=== PATIENT | female | born 1970 | race Caucasian/White ===

== ENCOUNTER → 2016-09-14 | Outpatient (CLI) | payer BC | LOC: M RAD 08:54 | PROVIDERS: ATTEND Nurse Practitioner | DX: Z12.31 Encounter for screening mammogram for malignant neoplasm of breast (principal) ==

== ENCOUNTER → 2016-12-20 | Outpatient (CLI) | payer BC ==
[~2016-12-20] MED LIST: CYCL10TA PO; FLOM5CAP PO; LEXA1TAB2 PO; MACR100C43 PO
--- NOTE | 2016-12-20 15:34 | REPMRS ---
Patient History The patient states she had a clinical breast exam in 12/06 Baseline Mammogram Patient is nulliparous. No known family history of cancer. Digital Woman Screen Mammo: December 20, 2016 - Exam #: [id number] Bilateral CC and MLO view(s) were taken. Technologist: Linette Sarabia, Technologist FINDINGS: The breast tissue is extremely dense which could obscure a lesion on mammography. There is a large amount of residual fibroglandular tissue which is fairly symmetric. There is no dominant mass, architectural distortion, or clustered microcalcification typical of malignancy. There are scattered, small, benign calcifications of doubtful clinical significance. Large coarse benign appearing calcifications are present. ASSESSMENT: BI-RADS/ACR category 2 mammogram. Benign finding(s). Recommendation Routine screening mammogram in 1 year (for women over age 40). This mammogram was interpreted with the aid of an FDA-approved computer-aided dectection system. A. Negative x-ray reports should not delay biopsy if a dominant or clinically suspicious mass is present. B. Four to eight percent of cancers are not identified by mammography. C. Adenosis and dense breast may obscure an underlying neoplasm. Electronically Signed By: Efren Fragoso MD 12/20/16 8821
== END ==
LOC: M WHC 09:38
PROVIDERS: ATTEND Advanced Practice Midwife
DX: Z12.31 Encounter for screening mammogram for malignant neoplasm of breast (principal)

== ENCOUNTER 2017-01-31 13:28 | Emergency (ER) | payer BC ==
[~2017-01-31] VITALS: Ht 165.1 cm; Wt 55.5 kg
[2017-01-31] MEDS ORDERED: LEXA1TAB2 PO (13:41)
[2017-01-31] MEDS ORDERED: KETOROLAC 30 MG/ML VIAL (J1885) IV ONE (14:15)
[2017-01-31 14:51] LABS: CONTROL LINE UCG INT CTR LINE PRESENT
[2017-01-31] MEDS ORDERED: MORPHINE 2 MG/ML 1ML SYRINGE IV ONE (15:00)
[2017-01-31] MEDS ORDERED: CYCL10TA PO (16:16)
[2017-01-31] MEDS ORDERED: FLOM5CAP PO (16:16)
[2017-01-31] MEDS ORDERED: MACR100C43 PO (16:24)
[2017-01-31 16:33] VITALS: BP 99/68
--- NOTE | 2017-01-31 16:45 | REP ---
CT ABDOMEN AND PELVIS WITHOUT CONTRAST: 01/31/2017. Comparison: 10/21/2006. Clinical history: Flank pain, history of nephrolithiasis. Findings: The noncontrast renal stone protocol was utilized. CT abdomen: Lung bases remain clear. Heart is not enlarged as no pericardial thickening or effusion and no hiatal hernia. Liver, spleen, gallbladder, pancreas and adrenal glands were unremarkable. The aorta is without aneurysm or calcification. No periaortic or other retroperitoneal pathologic sized lymphadenopathy. A levorotatory curvature of the lumbar spine is again seen. There are a couple of punctate calcifications in renal pyramids on the right. No definite stones in the collecting system. No ureteral dilatation or stone on the right. The left kidney shows some hydronephrosis. Extrarenal pelvis and proximal hydroureter down to about the L4-5 level. No stone is visible within that dilated ureter or extrarenal pelvis. There are numerous calcifications in that kidney some calyces or diverticula on these pyramids. The largest is in the lower pole on the right about 10 mm in vertical diameter. I note that the CT 10 years ago had trace stones in the dilated ureter down to about the L4-5 level which is precisely where the stricture is today. Small bowel loops and colon are grossly intact. Lung window review shows no evidence of perforation or free air. Bone windows show disc spaces intact with scoliosis as described in the lumbar spine and no compression deformity or posterior element acute finding. Visualized ribs intact. CT pelvis: Bony hips were unremarkable. The pelvis shows no fracture or focal lesion and sacrum and SI joints intact. Symphysis pubis and pubic rami were unremarkable. The pelvic ureters are not dilated on either side. There is no ureteral stone in the pelvis the bladder is without wall thickening mass or stone. Uterus anteverted, not enlarged. There is a 2.5 cm cyst in the left ovary without pelvic free fluid. Right ovary smaller without cyst. No solid adnexal mass or pelvic adenopathy. No inflammatory changes about the cecum. I see no ventral or inguinal hernia nor pathologic sized inguinal adenopathy. Impression: 1. Extrarenal pelvis and dilated ureter on the left to the level of L4-5. A ureteral stricture is present at that level. This is the same level where there are three stones in the ureter on the CT scan 10 years ago. No stones in the ureter or dilated collecting system today, although there are multiple stones up to 10 mm in pyramids and calyces on that left side. Some may be in a calyceal diverticulum but none of them are free in the collecting system. There are only a few pyramidal stones on the right side. No right sided hydronephrosis or hydroureter. 2. A 2.5 cm presumed ovarian cyst in the left ovary. 3. Levorotatory scoliotic curvature lumbar spine. No other finding. Signed by Efren Fragoso MD 01/31/2017 05:24 P
== END 2017-01-31 16:36 | disposition home or self-care (01) ==
LOC: M ED 13:28
DX: N20.0 Calculus of kidney (principal); M41.9 Scoliosis, unspecified; Z87.448 Personal history of other diseases of urinary system; Z88.1 Allergy status to other antibiotic agents
CPT/HCPCS: 74176; 84703; 96374; 96375; 99283; J1885

== ENCOUNTER → 2017-06-17 | Outpatient (REF) | payer BC ==
[2017-06-17 13:59] LABS: HEMATOCRIT 38.3 % (36.0-47.0); MEAN CORPUSCULAR HEMOGLOBIN 30.4 pg (27.0-33.0); MEAN CORPUSCULAR HGB CONC 33.9 g/dl (32.0-36.5); MEAN CORPUSCULAR VOLUME 89.7 fl (80.0-96.0); PLATELET COUNT, AUTOMATED 315 10^3/uL (150-450); RED BLOOD COUNT 4.27 10^6/uL (4.00-5.40); RED CELL DISTRIBUTION WIDTH 12.7 % (11.5-14.5); WHITE BLOOD COUNT 2.5 10^3/uL (4.0-10.0)
[2017-06-17 14:26] LABS: ALBUMIN 3.5 GM/DL (3.2-5.2); ALBUMIN/GLOBULIN RATIO 1.21 (1.00-1.93); ALKALINE PHOSPHATASE 69 U/L (45-117); ALT/SGPT 57 U/L (12-78); ANION GAP 6 MEQ/L (8-16); AST/SGOT 25 U/L (7-37); BILIRUBIN,TOTAL 0.3 MG/DL (0.2-1.0); BLOOD UREA NITROGEN 9 MG/DL (7-18); CALCIUM LEVEL 9.2 MG/DL (8.5-10.1); CARBON DIOXIDE LEVEL 27 MEQ/L (21-32); CHLORIDE LEVEL 112 MEQ/L (98-107); CHOLESTEROL LEVEL 189 MG/DL (<200); CHOLESTEROL RISK RATIO 3.315 (<5); CREATININE FOR GFR 0.32 MG/DL (0.55-1.02); FREE T4 2.19 NG/DL (0.76-1.46); GLOMERULAR FILTRATION RATE > 60.0 (>58); GLUCOSE, FASTING 97 MG/DL (70-100); HDL CHOLESTEROL 57 MG/DL (>40); LDL CHOLESTEROL 122.8 MG/DL (<100); NON-HDL-C 132 MG/DL; POTASSIUM SERUM 4.6 MEQ/L (3.5-5.1); SODIUM LEVEL 145 MEQ/L (136-145); THYROID STIMULATING HORMONE < 0.005 uIU/ML (0.358-3.740); TOTAL PROTEIN 6.4 GM/DL (6.4-8.2); TRIGLYCERIDES LEVEL 46 MG/DL (<150)
[2017-06-21 00:08] LABS: VITAMIN D 1,25 DIHYDROXY 27.5 pg/mL (19.9-79.3)
== END ==
LOC: M LAB REF 13:05
DX: Z01.419 Encounter for gynecological examination (general) (routine) without abnormal findings (principal)
CPT/HCPCS: 84443

== ENCOUNTER → 2017-06-23 | Outpatient (REF) | payer BC ==
[2017-06-24 12:58] LABS: THYROID PEROXIDASE ANTIBODY 89.7 U/ML (<60.0)
== END ==
LOC: M LAB REF 16:38
DX: R94.6 Abnormal results of thyroid function studies (principal)
CPT/HCPCS: 86376

== ENCOUNTER → 2017-07-06 | Outpatient (CLI) | payer BC | LOC: M RAD 10:32 | DX: E05.90 Thyrotoxicosis, unspecified without thyrotoxic crisis or storm (principal) ==

== ENCOUNTER → 2017-07-28 | Outpatient (CLI) | payer BC | LOC: M RAD 10:30 | DX: E05.80 Other thyrotoxicosis without thyrotoxic crisis or storm (principal) ==

== ENCOUNTER → 2018-10-25 | Outpatient (REF) | payer BC ==
[~2018-10-25] MED LIST changes: +FLOM0.4C39 PO; -FLOM5CAP PO
[2018-10-27 15:46] LABS: HPV HYBRID CAPTURE II Negative (Negative)
== END ==
LOC: M LAB REF 13:18
PROVIDERS: ATTEND Advanced Practice Midwife
DX: Z12.4 Encounter for screening for malignant neoplasm of cervix (principal)
CPT/HCPCS: 87624; G0123

== ENCOUNTER → 2018-10-30 | Outpatient (CLI) | payer BC ==
--- NOTE | 2018-10-30 13:59 | REPMRS ---
Patient History The patient states she had a clinical breast exam in October 2018.No known family history of cancer. Digital Mammo Screening Bilat: October 30, 2018 - Exam #: [id number] Bilateral CC and MLO view(s) were taken. Technologist: Madelaine Jovel, Technologist Prior study comparison: December 20, 2016, digital woman screen mammo, performed at [facility]. FINDINGS: The breast tissue is extremely dense which could obscure a lesion on mammography. There is an extremely dense symmetrical pattern of residual fibroglandular tissue. There has been no change in the appearance of the mammogram from the previous studies. There is no interval development of dominant mass, archetectural distortion, or microcalcific cluster suggestive of malignancy. 3-D tomosynthesis shows no additional findings. Assessment: BI-RADS/ACR category 1 mammogram. Negative Mammogram. Recommendation Routine screening mammogram of both breasts in 1 year (for women over age 40). This patient's Lifetime Breast Cancer RIsk is estimated at 12.8 %. This mammogram was interpreted with the aid of an FDA-approved computer-aided dectection system. Electronically Signed By: Prashant Kim MD 10/30/18 8948
== END ==
LOC: M RAD 12:35
PROVIDERS: ATTEND Advanced Practice Midwife
DX: Z12.31 Encounter for screening mammogram for malignant neoplasm of breast (principal)

== ENCOUNTER → 2019-12-26 | Outpatient (CLI) | payer BC ==
[~2019-12-26] MED LIST changes: +CYCL-707 PO; -CYCL10TA PO
--- NOTE | 2020-01-15 10:07 | REPMRS ---
Patient History The patient states she had a clinical breast exam in November 2019.Patient is nulliparous. No known family history of cancer. Digital Woman Screen Mammo: December 26, 2019 - Exam #: [id number] Bilateral CC and MLO view(s) were taken. Technologist: Lou Geiger, Technologist Prior study comparison: October 30, 2018, bilateral digital mammo screening bilat performed at [facility]. December 20, 2016, digital woman screen mammo, performed at [facility]. FINDINGS: The breast tissue is extremely dense which could obscure a lesion on mammography. There is an extremely dense symmetrical pattern of residual fibroglandular tissue. There has been no change in the appearance of the mammogram from the previous studies. There is no interval development of dominant mass, archetectural distortion, or grouped microcalcifications suggestive of malignancy. 3-D tomosynthesis shows no additional findings. Report was delayed due to a protracted computer network disruption experienced by this facility. Assessment: BI-RADS/ACR category 1 mammogram. Negative Mammogram. Recommendation Routine screening mammogram of both breasts in 1 year (for women over age 40). This patient's Lifetime Breast Cancer RIsk is estimated at 12.7 %. This mammogram was interpreted with the aid of an FDA-approved computer-aided dectection system. Electronically Signed By: Prashant Kim MD 01/15/20 1007
== END ==
LOC: M WHC 17:28
PROVIDERS: ATTEND Advanced Practice Midwife
DX: Z12.31 Encounter for screening mammogram for malignant neoplasm of breast (principal)

== ENCOUNTER → 2020-11-28 | Outpatient (REF) | payer BC | LOC: M SFHCWAGY 12:47 | PROVIDERS: ATTEND Advanced Practice Midwife | DX: Z12.4 Encounter for screening for malignant neoplasm of cervix (principal); R87.610 Atypical squamous cells of undetermined significance on cytologic smear of cervix (ASC-US) | CPT/HCPCS: 87624; G0123 ==

== ENCOUNTER → 2020-12-26 | Outpatient (CLI) | payer BC ==
--- NOTE | 2020-12-26 10:26 | REP ---
INDICATION: ENCTR SCREEN MAMMO FOR BREAST CANCER. COMPARISON: Multiple TECHNIQUE: Digital screening mammography was carried out bilaterally in the CC and MLO projections. Both 2D and 3D modalities were utilized. Today's exam is being compared to the prior exams. By history, the patient has no complaints of a palpable breast abnormality or other significant breast complaints. FINDINGS: The breasts are unchanged in size and shape. Once again, markedly dense heterogenous somewhat nodular fibroglandular elements are seen bilaterally to such a degree that the sensitivity of the mammogram in detecting cancer is decreased. In the upper aspect of the left breast near 12 o'clock there is a potential florentino density best seen on DBT imaging. In the right breast upper outer quadrant there is a potential florentino density also seen best on DBT imaging. Stable benign appearing calcifications are again seen bilaterally. Some of these are in groups but no in group is more suspicious than any other. There is no evidence of internal architectural distortion. There are no suspicious calcifications. There is no skin thickening or nipple retraction. The Volpara volumetric breast density pattern is D IMPRESSION: BIRADS/ACR category 0 mammogram. Potential florentino density 1 in each breast as described above and for which diagnostic digital DBT spot compression views are recommended in the CC and MLO projections. Additionally, diagnostic ultrasonography may be necessary. This patient's Tyrer-Cuzick lifetime breast cancer risk assessment score is 12.5%. This mammogram was interpreted with the aid of an FDA-approved computer-aided detection system. The patient states she had a clinical breast exam in November 2020 The patient letter being requested is M0. RECOMMENDATION: As above <Electronically signed by Jake Ayers > 12/26/20 1020
== END ==
LOC: M WHC 09:22
PROVIDERS: ATTEND Advanced Practice Midwife
DX: R92.2 Inconclusive mammogram (principal)

== ENCOUNTER → 2021-01-29 | Outpatient (CLI) | payer BC ==
--- NOTE | 2021-01-29 10:15 | REP ---
INDICATION: SOO DIAG MAMMO/SOO SERGEI DENSITIES. COMPARISON: Multiple TECHNIQUE: Diagnostic digital bilateral mammography was carried out in both 2D and 3D modalities with magnified spot compression views in the CC and MLO projections along with bilateral DBT spot compression views in the CC and MLO projections. Diagnostic ultrasonography of the upper outer quadrant of the right breast was also obtained. FINDINGS: Left breast: The area of interest seen on the prior screening examination of 12/26/2020 near the 12 o'clock position has compressed out to normal breast parenchyma. Stable benign appearing calcifications are identified. Right breast: The nodular density seen in the upper outer quadrant persists on the diagnostic views. Diagnostic ultrasonography of this region shows multiple smoothly marginated well-circumscribed anechoic structures varying in size from less than 5 mm up to 8 mm in greatest dimensions. These all exhibit posterior wall enhancement and increased through transmission. Shear wave elastography was performed on the showing very low kPa values. IMPRESSION: BIRADS/ACR category 2 benign findings. Multiple right breast cysts. There is no evidence of malignant alteration of either breast. The patient letter being requested is M1. RECOMMENDATION: Repeat screening mammography recommended 1 year (for women over 40). <Electronically signed by Jake Ayers > 01/29/21 1014
== END ==
LOC: M WHC 07:44
PROVIDERS: ATTEND Advanced Practice Midwife
DX: R92.2 Inconclusive mammogram (principal)
CPT/HCPCS: 76642; 77066; G0279

== ENCOUNTER → 2022-02-18 | Outpatient (CLI) | payer BC | LOC: M WHC 09:09 | PROVIDERS: ATTEND Advanced Practice Midwife | DX: Z12.31 Encounter for screening mammogram for malignant neoplasm of breast (principal) ==

== ENCOUNTER → 2023-03-02 | Outpatient (CLI) | payer BC | LOC: M WHC 15:03 | PROVIDERS: ATTEND Advanced Practice Midwife | DX: Z12.31 Encounter for screening mammogram for malignant neoplasm of breast (principal) ==

== ENCOUNTER → 2024-12-05 | Outpatient (CLI) | payer BC ==
[~2024-12-05] MED LIST changes: -FLOM0.4C39 PO; +TAMS-18 PO
[2024-12-05 13:52] LABS: PROGESTERONE 0.25 NG/ML
[2024-12-05 13:53] LABS: ESTRADIOL < 19.0 PG/ML
[2024-12-10 08:52] LABS: TESTOSTERONE FREE (DIRECT) 1.3 pg/mL (0.1-6.4); TESTOSTERONE TOTAL FOR T&D 16.0 ng/dL (2-45)
== END ==
LOC: M PLALAB 10:01
PROVIDERS: ATTEND Advanced Practice Midwife
DX: N95.1 Menopausal and female climacteric states (principal); M25.50 Pain in unspecified joint; R61 Generalized hyperhidrosis